=== PATIENT | female | born 1955 | race Caucasian/White ===

== ENCOUNTER 2018-06-24 07:35 | Observation (INO) ==
--- NOTE | 2018-06-24 08:00 | History & Physical Bridge Note ---
Date of Service June 24, 2018 History & Physical Bridge Note I have examined the patient, reviewed the History & Physical and in the interval since the performance of the History & Physical I have noted the following changes of clinical significance: no changes noted
--- NOTE | 2018-06-24 08:01 | Pre Anesthesia Assessment ---
Date of Service June 24, 2018 Pre Sedation Assessment Cardiovascular RRR, no murmur, no edema Respiratory normal respiratory effort, lungs clear to auscultation Pre-Sedation Airway Assessment Smoking Status: Never smoker Procedure Planning Contraindications for Sedation: none Current Medications Reviewed: Yes Notes The planned sedation has been discussed with the patient. Informed Consent was obtained. I have identified the patient, determined the appropriateness of sedation and have assessed the patient immediately prior to the procedure. All medicine(s) and interventions are by my order.
[2018-06-24] MEDS ORDERED: fentaNYL citrate 100 MCG/2 ML VIAL ONE (08:53)
[2018-06-24] MEDS ORDERED: MIDAZOLAM HCL 1 MG/ML 2ML VIAL ONE (08:53)
[2018-06-24] MEDS ORDERED: HEPARIN (PORCINE) 1000 UNIT/ML 10 ML (CATH LAB USE ONLY) ONE (08:54)
[2018-06-24] MEDS ORDERED: NiCARDipine HCL INJ 2.5 MG/ML 10 ML AMP ONE (08:54)
[2018-06-24] MEDS ORDERED: NITROGLYCERIN/D5W 100MCG/ML 20ML SYR ONE (08:54)
--- NOTE | 2018-06-24 09:13 | Cardiac Catheterization ---
Cardiac Cath Procedure Full Procedure Date June 24, 2018 Pre-Procedure Diagnosis Pre-Procedure Diagnosis: Angina and Cardiothoracic Symptom AUC Score AUC Score: 8 Post-Procedure Diagnosis Post-Procedure Diagnosis: Severe CAD and Normal Intracardiac Pressures Procedure(s) Performed Procedure(s) Performed: Coronary Angiography and Left Heart Cath Customer Advocate Dominic Allan DO Computer Typesetter Keyliner(s) Tessy SCOTT Estimated Blood Loss Estimated Blood Loss: 5cc Medication(s) Medication(s): Heparin, Lidocaine 1%, Nicardipine, Nitroglycerin and Versed Summary of Findings 70% tandem proximal and mid LAD Severe diffuse Diagonal branch vessel disease (small vessel, medical management) 99% proximal OM1 Hemodynamics Rest Ao:: 113/66/87 Final Ao: 125/57/85 LV: 120/0/14 Recommendations Recommendations: PCI without planned CABG Specimens Specimens: None Radiation Exposure (mGy) 732 Contrast (mls) 55 Fluids (cc crystalloids) Fluids (cc crystalloids): 77 Nss Anesthesia Moderate sedation. Start 0824. End 0922. Sedation monitor: Elkin SCOTT Procedural Complication(s) None Disposition cardiac catheterization technologist for PCI ACC Data: Shipyard Helper Cardiac Status Clinical evaluation leading to the procedure CAD Presenation: Unstable angina Anginal Classification: CCS II Heart Failure: No Stress Studies Past 6 Months: No Coronary Anatomy Dominant: Right Left Main (% Stenosis): Distal (20%, mild calcifdication) LAD (% Stenosis): Proximal (60-70% eccentric moderate calcification) and Mid (70% moderate calcifiaction, possible small thrombus. 50% long late mid stenosis, moderate calcification) D1 (% Stenosis): Ostial (80% small 1mm vessel), Proximal (95%) and Mid (40%) Circumflex (% Stenosis): Proximal (20%) and Mid (10% diffuse) OM1 (% Stenosis): Proximal (99%) and Distal (left to left collateral arising from LAD) OM2 (% Stenosis): Mid (10% diffuse) RCA (% Stenosis): Proximal (20%, mild calcification) and Mid (long 40%, moderate calcification) R PDA (% Stenosis): Normal R PL1 (% Stenosis): Normal R PL2 (% Stenosis): Normal (RPL3 without significant obstructive disease) Diagnostic Physicians Name: Dominic Allan DO Status: Elective Closure Device Percutaneous Entry Location: Radial Closure Device: Radial Band Recommendations: PCI without planned CABG Intraprocedure Events Significant Disection: No Perforation: No
--- NOTE | 2018-06-24 09:13 | Post Anesthesia Assessment ---
Date of Service June 24, 2018 Post Sedation Assessment Vital Signs Temp Pulse Resp BP Pulse Ox 06/24/18 08:02 36.9 C 62 16 148/79 H 100 Post Sedation Plan On clinical assessment, the patient appears to have tolerated the sedation without complications. Patient is recovering as anticipated. Patient will continue to be monitored by nursing and may be discharged when sedation discharge criteria are met per below protocol. Upon Completions of procedure and additional 15 minutes continue every 5 minute vital signs and the P.A.R. score; then discharge to a Phase I or Fast Track to Phase II per the following guidelines: * Discharge Patient to appropriate Phase II area if PAR is 8 or greater or return to pre- procedure baseline. The post - procedure orders will be as directed. * If PAR score is less than 8 or not return to pre-procedure baseline then patient will follow Phase I monitoring till PAR is reached for Phase II. The Phase I may be done in procedure room or may call to secure a Phase I area. * If naloxone or flumazenil are used for reversal, hold in Phase I for continued monitoring from when last reversal dose was given for a minimum of 60 minutes or longer pending the nurse and/or physician discretion of patient condition before discharge to Phase II. Please call the Sedation Physician to re-evaluate and complete post-note for discharge to Phase II area. Do NOT discharge from procedure sedation or Phase 1 until post- sedation evaluation note is complete by procedure /sedation MD Sedation Discharge Instructions to be given to the patient at discharge to home.
[2018-06-24] MEDS ORDERED: CLOPIDOGREL BISULFATE 300 MG TAB ONE (10:34)
--- NOTE | 2018-06-24 10:39 | Post Anesthesia Assessment ---
Date of Service June 24, 2018 Post Sedation Assessment Vital Signs Temp Pulse Resp BP Pulse Ox 06/24/18 08:02 36.9 C 62 16 148/79 H 100 Recovery Score Activity: Moves 4 extremities Respiration: Deep Breath/Cough Circulation: +/-20% PreAnes Value Consciousness: Fully Awake Oxygen Saturation: O2 needed for >90% Discharge Sedation Level of Care: Fast Track Phase II Post Sedation Plan On clinical assessment, the patient appears to have tolerated the sedation without complications. Patient is recovering as anticipated. Patient will continue to be monitored by nursing and may be discharged when sedation discharge criteria are met per below protocol. Upon Completions of procedure and additional 15 minutes continue every 5 minute vital signs and the P.A.R. score; then discharge to a Phase I or Fast Track to Phase II per the following guidelines: * Discharge Patient to appropriate Phase II area if PAR is 8 or greater or return to pre- procedure baseline. The post - procedure orders will be as directed. * If PAR score is less than 8 or not return to pre-procedure baseline then patient will follow Phase I monitoring till PAR is reached for Phase II. The Phase I may be done in procedure room or may call to secure a Phase I area. * If naloxone or flumazenil are used for reversal, hold in Phase I for continued monitoring from when last reversal dose was given for a minimum of 60 minutes or longer pending the nurse and/or physician discretion of patient condition before discharge to Phase II. Please call the Sedation Physician to re-evaluate and complete post-note for discharge to Phase II area. Do NOT discharge from procedure sedation or Phase 1 until post- sedation evaluation note is complete by procedure /sedation MD Sedation Discharge Instructions to be given to the patient at discharge to home.
[2018-06-24] MEDS ORDERED: ACETAMINOPHEN 325 MG TAB PO PRN (10:49)
[2018-06-24] MEDS ORDERED: ONDANSETRON INJ 2 MG/ML 2 ML VIAL IV PRN (10:49)
--- NOTE | 2018-06-24 10:49 | Cardiac Catheterization ---
Cardiac Cath Procedure Full Procedure Date June 24, 2018 Pre-Procedure Diagnosis Pre-Procedure Diagnosis: Angina and Cardiothoracic Symptom AUC Score AUC Score: 8 Post-Procedure Diagnosis Post-Procedure Diagnosis: Severe CAD and Successful PCI Procedure(s) Performed Procedure(s) Performed: Coronary Angiography, PTCA and Drug Eluting Stent Tech Ed/Woodshop Teacher Raj Orozco MD Player Services Representative(s) Nidia Still RN Estimated Blood Loss Estimated Blood Loss: 20 Medication(s) Medication(s): Fentanyl, Heparin, Lidocaine 1%, Nicardipine, Nitroglycerin and Versed Summary of Findings 70% tandem proximal and mid LAD Severe diffuse Diagonal branch vessel disease (small vessel, medical management) 99% proximal OM1 Indication: Accelerating angina Access: 6 Fr right radial artery Catheters: EBU 3.5 guide, guideliner Findings: For full details of patient's coronary angiography please cath report dictated by Dr. Allan. Briefly, patient found to have multiple vessel disease including a sequential 70% lesions involving proximal to mid LAD and ostium of first obtuse marginal. Decision to proceed with PCI. -- PCI -- Antithrombotic therapy: Heparin, Clopidogrel Procedure: Left main cannulated with EBU 3.5 guide Sales Operations Specialist 50 wire passed across lesion into distal vessel IVUS used to assess extent of disease, degree of calcification. IVUS revealed heavily calcified lesions from proximal to mid LAD, greater than 70% stenosis Proximal to mid LAD lesions predilated with 2.0 and 2.5 compliant balloons With the aid of a guide liner dilated lesion stented with 2.5 x 38 mm Xience Maribell drug-eluting stent Stent post-dilated with 2.5 noncompliant balloon IC vasodilators administered for spasm Post procedure ADEN 3 flow, stent well expanded with minimal residual stenosis and no apparent cardiac complications. Sales Operations Specialist 50 wire removed from LAD, whisper wire directed into circumflex and obtuse marginal Ostium of obtuse marginal dilated with 2.0 balloon Post procedure ADEN III flow, 20-30% residual stenosis no apparent cardiac applications. Arterial Closure: TR band Summary: 1. Successful PCI of proximal to mid LAD with single long drug-eluting stent (2.5 x 38 mm Xience Maribell). 2. Successful PCTA of small proximal OM1 with 2.0 balloon Recommendations: To PCU for continued monitoring Loaded with 600 mg in phlebotomy lab assistant Continue dual-antiplatelet therapy for at least 6 months Continue statin, and ASCVD risk factor modification Consult cardiac Rehab Hemodynamics Rest Ao:: 129/63/90 Final Ao: 152/69/101 LV: -- Recommendations Recommendations: PCI without planned CABG Specimens Specimens: None Radiation Exposure (mGy) 2907 Contrast (mls) 222 Fluids (cc crystalloids) Fluids (cc crystalloids): 77 Nss Drains Drains: None Anesthesia Moderate Procedural Complication(s) None Disposition PCU ACC Data: Market Research Senior Project Manager Cardiac Status Clinical evaluation leading to the procedure CAD Presenation: Unstable angina Anginal Classification: CCS III Heart Failure: No Cardiogenic Shock within 24 Hours: No Cardiac Arrest within 24 Hours: No Imaging Studies Past 6 Months: Yes Stress Studies Past 6 Months: Yes Stress Echocardiogram: Yes - Negative Diagnostic Physicians Name: Raj Orozco MD Status: Elective Closure Device Percutaneous Entry Location: Radial Closure Device: Radial Band Recommendations: PCI without planned CABG PCI Indication: Unstable Angina Lesion Segment Name: Proximal to mid LAD Culprit Artery: Yes Stenosis Prior to Rx (%): 70 Chronic Total Occlusion: No IVUS: Yes FFR: No Pre-Procedure ADEN Flow: 3 Previously Treated Lesion: No Lesion Complexity: High/C Lesion Length (mm): 35 Thrombus Present: No Bifurcation Lesion: Yes Guidewire Across Lesion: Stenosis Post-Procedure (%): 0 Post-Procedure ADEN Flow: 3 Devices(s) Deployed: Yes Yes Lesion #2 Segment Name: Proximal OM1 Culprit Artery: No Stenosis Prior to Rx (%): 99 Chronic Total Occlusion: No IVUS: No FFR: No Pre-Procedure ADEN Flow: 3 Previously Treated Lesion: No Lesion Complexity: Non-High/Non-C Lesion Length (mm): 12 Thrombus Present: No Bifurcation Lesion: Yes Guidewire Across Lesion: Yes Stenosis Post-Procedure (%): 0 Post-Procedure ADEN Flow: 3 Devices(s) Deployed: No Intraprocedure Events Significant Disection: No Perforation: No
[2018-06-24] MEDS ORDERED: SODIUM CHLORIDE 0.9% 1000ML 1,000 ML IV SCH (11:00)
[2018-06-24] MEDS ORDERED: CETIRIZINE HCL 10 MG TABLET PO PRN (11:08)
[2018-06-24] MEDS ORDERED: POLYETHYLENE (MIRALAX) 17 GM PACK PO PRN (11:10)
--- NOTE | 2018-06-24 11:11 | Hospitalist Consultation ---
Date of Consultation June 24, 2018 Assessment & Plan (1) CAD (coronary artery disease): Underwent cardiac cath with angioplasty and stent placement today - management per primary service. Pt is currently stable and feeling well - Received loading dose of Plavix in sleep lab technologist - continue dual anti-platelets x 6 months per cardio note - Already on beta-manny and statin therapy (2) Celiac disease: Pt reports this is stable and currently asymptomatic - Continue gluten-free diet while admitted (3) Dyslipidemia: - Continue outpatient statin therapy - pt reports that she does well on rosuvastatin (4) High blood pressure: - Management per primary service - on atenolol and HCTZ as outpatient (5) Acid reflux disease: - Continue once daily PPI therapy - will use pantoprazole while admitted Patient seen and evaluated with collaborating physician, Dr. Kelsey. Plan of care discussed and as outlined above. Thank you for this consultation. We will continued to follow patient with you - pt will be follwed by Dr. Grace starting tomorrow morning. [facility] can be reached 27/10 via pager at [phone]. Moriah Sloan PA-C. Supervising Physician Co-Signing Physician Notes Patient is a 63-year-old female with history of hypertension, dyslipidemia, celiac disease and other problems was seen in examined after having an elective cardiac catheterization and PCI today. Patient was noted to have a 70% stenosis proximal and mid LAD, severe diffuse diagonal branch vessel disease and 99% proximal OM1. Patient underwent successful PCI of proximal mid LAD with drug- eluting stent and successful PCTA of small proximal OM1 with balloon. Post catheterization patient is doing well with no complaints of chest pain, shortness of breath, dizziness, fever, nausea. On exam patient is moderately built and nourished, no distress, normocephalic atraumatic, lungs are clear to auscultation, S1-S2, no murmur, abdomen is soft nontender, no neurological focal deficits, no pedal edema. Patient is admitted under observation status for management of post PCI. Plan to continue dual antiplatelet therapy with aspirin and Plavix. Also continue BB, statin. Her celiac disease is well controlled. Continue gluten-free diet. I personally reviewed the record. Patient is interviewed and examined at bedside. Patient's care is coordinated with Padmini Sloan PA-C. Please refer to the documentation above for details of patient's presentation and for discussion of other issues. History of Present Illness Attending Physician: Dominic Allan DO This is a 63 y/o female with a PMH of HTN, dyslipidemia, migraine, Meneires disease and celiac disease who is being admitted for observation after cardiac catheterization with angioplasty and stent placement. Pt apparently developed an episode of chest pain in fall 2017 when she was visiting [facility] [place]. She was under subsequent stress echo that was negative for inducible ischemia by ec ho but did show equivocal EKG changes although no reproducible symptoms. Over the past few weeks, pt attempted to start an exercise regimen but developed crushing chest pressure when walking up an incline, relieved by rest, so again seen by cardiology and referred for cath. Underwent diagnostic cardiac cath by Dr. Allan followed by therapeutic intervention by Dr. Orozco with placement of long drug eluting stent in LAD and balloon of obtuse marginal artery. Currently, pt is seen resting comfortably on the floor post-cath. Her only complaint at present is frontal KRUSE that she attributes to not having her morning caffeine. She denies chest pain, shortness of breath, dizziness, nausea, vomiting. Allergies Allergy/AdvReac Type Severity Reaction Status Date / Time meperidine [From Demerol] Allergy Difficulty Verified 06/24/18 07:58 Breathing Penicillins Allergy Rash Verified 06/24/18 07:58 Home Medications Home Medications Medication Instructions Recorded Confirmed Type aspirin 81 mg PO DAILY 03/15/18 06/24/18 History atenolol 50 mg PO DAILY 03/15/18 06/24/18 History calcium citrate-vitamin D3 2 tab PO DAILY 03/15/18 06/24/18 History [Citracal + D Maximum] cetirizine [Zyrtec] 10 mg PO DAILY PRN 03/15/18 06/24/18 History hydrochlorothiazide 12.5 mg PO DAILY 03/15/18 06/24/18 History rosuvastatin 10 mg PO DAILY 03/15/18 06/24/18 History naproxen 500 mg PO BID PRN 06/24/18 06/24/18 History omeprazole magnesium [Prilosec OTC] 20 mg PO DAILY 06/24/18 06/24/18 History potassium chloride 10 meq PO DAILY 06/24/18 06/24/18 History pseudoephedrine HCl [Sudafed] See Rx Instructions .ROUTE .COMPLEX 06/24/18 06/24/18 History Patient History Medical History Acid reflux disease (Chronic) High blood pressure (Chronic) Microscopic hematuria (Chronic) Celiac disease (Chronic) Dyslipidemia (Chronic) Migraine (Chronic) Meniere disease (Chronic) Syringobulbia (Chronic) CAD (coronary artery disease) (Chronic) HX: benign breast biopsy Surgical History History of cataract surgery (Chronic) History of hysterectomy (Chronic) Still has ovaries Social History Preferred Language: Vietnamese Communication Ability: Effective Beliefs That Will Affect Care: None Current Living Situation: Spouse Other Information That Helps Us Care for You: No Feels Safe at Home: Yes Safety Concerns: Feels Safe At This Time Smoking Status: Never smoker Hx Alcohol Use: No Hx Substance Use: No Review of Systems All systems reviewed and negative except as noted in HPI and below Constitutional: no fever, no chills, no sweats, no malaise, no weakness and no weight loss Eyes: no diplopia and no worsening vision Ear, Nose, Mouth, Throat: no sore throat and no dysphagia Respiratory: no cough, no chest congestion, no dyspnea and no wheezing Cardiovascular: no chest pain, no palpitations, no lightheadedness and no edema Gastrointestinal: no nausea, no vomiting and no change in bowel habits Musculoskeletal: + back pain (chronic, unchanged) Integumentary: no rash Neurologic: + headache(s); no tingling, no radiating pain, no dizziness and no syncope Psychiatric: no depression and no anxiety Physical Exam Vital Signs (Past 24 Hours): Last Vital Signs Temp 36.9 C 06/24/18 08:02 Pulse 62 06/24/18 08:02 Resp 16 06/24/18 08:02 BP 148/79 H 06/24/18 08:02 Pulse Ox 100 06/24/18 08:02 Constitutional: WD/WN, vitals as above Eyes: + anicteric sclerae; no conjunctival abnormality ENMT: external ear and nose normal, oropharynx normal Neck: trachea midline Respiratory: no respiratory distress and no labored breathing Auscultation: lungs clear to auscultation bilaterally; no rales, no rhonchi and no wheezes Cardiovascular: Rate/Rhythm: regular rate and regular rhythm Heart Sounds: no gallop, no murmur and no cardiac rub Vessels: no JVD Extremities: normal capillary refill; no calf tenderness and no pedal edema Gastrointestinal (Abdomen): Inspection/Auscultation: normal bowel sounds; abdomen not distended Percussion/Palpation: abdomen soft; abdomen nontender Musculoskeletal: Extremities: no cyanosis Skin: no rashes, warm and dry Neurologic: moves all extremities Psychiatric: A+Ox3, euthymic affect Results & Data Laboratory Results Laboratory Last Values Activ Coag Time Kaolin 312 SECONDS (94-140) H 06/24/18 08:50 Medications Administered Acetaminophen (Tylenol) 650 mg PO Q4H PRN PRN Reason: Mild Pain (scale 1-3) Stop: 07/24/18 10:48 Last Admin: 06/24/18 12:07 Dose: 650 mg Documented by: [id number] Sodium Chloride (Nss 1000ml) 1,000 mls @ 75 mls/hr IV .[id number] OSMIN Stop: 06/24/18 17:39 Last Admin: 06/24/18 11:31 Dose: 75 mls/hr Documented by: [id number] Discontinued Medications Clopidogrel Bisulfate (Plavix) Confirm Administered Dose 600 mg .ROUTE .STK-MED ONE Stop: 06/24/18 10:35 Last Admin: 06/24/18 10:37 Dose: 600 mg Documented by: [id number] Fentanyl Citrate (Fentanyl Citrate) Confirm Administered Dose 100 mcg .ROUTE .STK-MED ONE Stop: 06/24/18 08:54 Last Increment: 06/24/18 10:33 Dose: 25 mcg Documented by: [id number] Heparin Sodium (Porcine) (Heparin Iv Bolus (Cut Off Machine Helper Use Only)) Confirm Administered Dose 10,000 units .ROUTE .STK-MED ONE Stop: 06/24/18 08:55 Last Admin: 06/24/18 10:36 Dose: 10,000 units Documented by: [id number] Heparin Sodium/Sodium Chloride (Heparin Sod/Nss 2 Units/Ml) Confirm Administered Dose 3,000 units IV .STK-MED ONE Stop: 06/24/18 08:55 Last Admin: 06/24/18 10:36 Dose: 3,000 units Documented by: [id number] Midazolam HCl (Versed) Confirm Administered Dose 4 mg .ROUTE .STK-MED ONE Stop: 06/24/18 08:54 Last Increment: 06/24/18 10:35 Dose: 3 mg Documented by: [id number] Nicardipine HCl (Cardene) Confirm Administered Dose 25 mg .ROUTE .STK-MED ONE Stop: 06/24/18 08:55 Last Admin: 06/24/18 10:36 Dose: 25 mg Documented by: [id number] Nitroglycerin/Dextrose (Nitroglycerin/D5w 100 Mcg/Ml 20ml Syringe) Confirm Administered Dose 2,000 mcg .ROUTE .STK-MED ONE Stop: 06/24/18 08:55 Last Admin: 06/24/18 10:36 Dose: 2,000 mcg Documented by: [id number] (1) Acid reflux disease Esophagitis presence: esophagitis presence not specified Qualified Code(s): K21.9 - Gastro-esophageal reflux disease without esophagitis (2) High blood pressure Hypertension type: essential hypertension Qualified Code(s): I10 - Essential (primary) hypertension
[2018-06-25 03:30] VITALS: PULSE 60; O2SAT 96
[2018-06-25 06:49] LABS: Basophils # (auto) 0.01 K/uL (0-0.2); Basophils % (auto) 0.1 %; Eosinophils # (auto) 0.33 K/uL (0-0.5); Eosinophils % (auto) 4.5 %; Hematocrit (blood only) 40.2 % (37-47); Hemoglobin 13.6 g/dL (12.0-16.0); Immature Granulocytes # (auto) 0.02 K/uL (0.00-0.02); Immature Granulocytes % (auto) 0.3 %; Lymphocytes # (auto) 1.75 K/uL (1.2-3.4); Lymphocytes % (auto) 23.6 %; Mean Corpuscular Hgb Conc 33.8 g/dL (32-36); Mean Corpuscular Volume 87.4 fL (80-100); Mean Platelet Volume 10.2 fL (7.4-10.4); Monocytes # (auto) 0.56 K/uL (0.11-0.59); Monocytes % (auto) 7.6 %; Neutrophils # (auto) 4.73 K/uL (1.4-6.5); Neutrophils % (auto) 63.9 %; Platelet Count 166 K/uL (130-400); RDW Standard Deviation 41.4 fL (36.4-46.3)
[2018-06-25 07:13] VITALS: BP 134/72; TEMP 98.1
[2018-06-25 07:29] LABS: Calcium 8.9 mg/dl (8.5-10.1); Creatinine Clr Calc Pharmacy 66.3 ml/min; Est GFR (African American) 99.2; Est GFR (Non-African American) 85.6; Magnesium 2.3 mg/dl (1.8-2.4); Potassium 3.7 mmol/L (3.5-5.1)
[2018-06-25] MEDS ORDERED: CLOPIDOGREL BISULFATE 75 MG TAB PO SCH (09:00)
[2018-06-25] MEDS ORDERED: ROSUVASTATIN CALCIUM 10 MG TAB PO SCH (09:00)
[2018-06-25] MEDS ORDERED: ATENOLOL 50 MG TABLET PO SCH (09:00)
[2018-06-25] MEDS ORDERED: hydroCHLOROthiazide 25 MG TAB PO SCH (09:00)
[2018-06-25] MEDS ORDERED: PANTOprazole 40 MG TAB PO SCH (09:00)
[2018-06-25] MEDS ORDERED: ASPIRIN 81 MG ECTAB PO SCH (09:00)
--- NOTE | 2018-06-25 09:04 | Cardiology Progress Note ---
Date of Service June 25, 2018 Assessment & Plan (1) CAD (coronary artery disease): Successful PCI of proximal to mid LAD with single long drug-eluting stent (2.5 x 38 mm Xience Maribell). and Successful PCTA of small proximal OM1 with 2.0 balloon tolerated well hematoma resolved, reviewed need for close monitoring with patient and to seek immediate medical attention should it reaccumulate or any sign of bleeding script for plavix sent to [facility] pharmacy per patient preference only other med change will be to increase crestor to 20mg daily already scheduled with Stephanie Amaro PA-C on 07/05, will keep bmp in one week to follow K pt instructed to gradually increase activity as tolerated. will d/c home now (2) Dyslipidemia: increase crestor to 20mg daily further titration as an outpatient Subjective Pt seen and examined, without complaint. Slight hematoma formation last PM, now resolved. Some slight soreness at site. Denies cp, sob, palpitations, lightheadedness or dizziness. tele reviewed: sinus rhythm without arrhythmia or significant ectopy. Review of Systems All systems reviewed & are unremarkable except as noted in HPI & below Physical Exam Vital Signs (Past 24 Hours): Last Vital Signs Temp 36.7 C 06/25/18 07:11 Pulse 60 06/25/18 07:11 Resp 16 06/25/18 07:11 BP 134/72 06/25/18 07:11 Pulse Ox 96 06/25/18 07:11 Physical Exam: General: Awake, alert and oriented x 3. No acute distress. HEENT: Normocephalic, atraumatic. Pupils equal, round and reactive to light and accommodation. Extraocular muscles are intact. Anicteric sclera. Moist mucous membranes. Neck: No JVD. No bruit. Cardiovascular: Regular. Positive S-4. Normal S-1 and S-2. No S-3. No murmurs or rubs. Pulmonary: Clear to auscultation B/L. No rales, rhonchi or wheezing Abdomen: Bowel sounds x 4, soft. No rebound, guarding or tenderness. No organomegaly. Extremities: No clubbing, cyanosis or edema. +2 pedal pulses bilaterally. Skin: Warm and dry.
--- NOTE | 2018-06-25 09:07 | Discharge Summary ---
Date of Service June 25, 2018 Admission Exam Per Admitting Provider General: Awake, alert and oriented x 3. No acute distress. HEENT: Normocephalic, atraumatic. Pupils equal, round and reactive to light and accommodation. Extraocular muscles are intact. Anicteric sclera. Moist mucous membranes. Neck: No JVD. No bruit. Cardiovascular: Regular. Positive S-4. Normal S-1 and S-2. No S-3. No murmurs or rubs. Pulmonary: Clear to auscultation B/L. No rales, rhonchi or wheezing Abdomen: Bowel sounds x 4, soft. No rebound, guarding or tenderness. No organomegaly. Extremities: No clubbing, cyanosis or edema. +2 pedal pulses bilaterally. Skin: Warm and dry. Principal Diagnosis Principal Diagnosis CAD Discharge Exam General: Awake, alert and oriented x 3. No acute distress. HEENT: Normocephalic, atraumatic. Pupils equal, round and reactive to light and accommodation. Extraocular muscles are intact. Anicteric sclera. Moist mu cous membranes. Neck: No JVD. No bruit. Cardiovascular: Regular. Positive S-4. Normal S-1 and S-2. No S-3. No murmurs or rubs. Pulmonary: Clear to auscultation B/L. No rales, rhonchi or wheezing Abdomen: Bowel sounds x 4, soft. No rebound, guarding or tenderness. No organomegaly. Extremities: No clubbing, cyanosis or edema. +2 pedal pulses bilaterally. Skin: Warm and dry. Discharge Data Allergies Allergy/AdvReac Type Severity Reaction Status Date / Time meperidine [From Demerol] Allergy Difficulty Verified 06/24/18 07:58 Breathing Penicillins Allergy Rash Verified 06/24/18 07:58 Procedures Performed Operation Date: 06/24/18 08:00 Actual Procedures p Cath, Left with Cors and Vent - Dominic Allan DO s Cineradiography w/Routine Exam - Dominic Allan DO s Drug Eluting Stent SGl Vessel - Alessio Orozco MD s IVUS Coronary Single Vessel - Alessio Orozco MD s POBA SGL Vessel - Alessio Orozco MD Ordered Studies 06/24/18 07:05 CL Cath Imgs for PACS use only Routine Hospital Course (1) CAD (coronary artery disease): Successful PCI of proximal to mid LAD with single long drug-eluting stent (2.5 x 38 mm Xience Maribell). and Successful PCTA of small proximal OM1 with 2.0 balloon tolerated well hematoma resolved, reviewed need for close monitoring with patient and to seek immediate medical attention should it reaccumulate or any sign of bleeding script for plavix sent to [facility]'s pharmacy per patient preference only other med change will be to increase crestor to 20mg daily already scheduled with Stephanie Amaro PA-C on 07/05, will keep bmp in one week to follow K pt instructed to gradually increase activity as tolerated. will d/c home now (2) Dyslipidemia: increase crestor to 20mg daily further titration as an outpatient Total Time Total Time Spent Total Time Spent (In Minutes): 40 Discharge Plan Discharge Items Patient Disposition: Home - Self-Care Reason For Visit: Chest Pain Discharge Diagnosis: coronary artery disease Discharge Goals: Improve disease control and Improve function Activity: Resume your previous activity Non-emergency contact: Primary Care Provider Call non-emergency contact if: you have any medication questions Follow-up/Referrals: Mary Garcia PA-C [Primary Care Provider] - Diet: Heart Healthy Add Provider Instructions: Home Care: * Take your medications exactly as directed. Don't skip doses. * Remember that recovery after a heart attack takes time. Plan to rest for at lease 4-8 weeks while you recover. Then return to normal activity when your doctor says it's okay. * Ask your doctor about joining a heart rehabilitation program. * Tell your doctor if you are feeling depressed. Feelings of sadness are common after a heart attack, but it is important that you speak to someone if you are feeling overwhelmed by these feelings. * If you are having chest pain, call 911 for an ambulance. Do NOT drive yourself to the hospital. * Ask your family members to learn CPR. * Learn to take your own blood pressure and pulse. Keep a record of your results. Ask your doctor when you should seek emergency medical attention. He or she will tell you which blood pressure reading is dangerous. Lifestyle Changes: * Maintain a healthy weight. Get help to lose any extra pounds. * Cut back on salt. * Limit canned, dried, packaged, and fast foods. * Don't add salt to your food. * Season foods with herbs instead of salt when you cook. * Break the smoking habit. Enroll in a stop-smoking program to improve your chances of success. * Limit fatty foods. * Ask your doctor about having your lipid levels checked regularly. * Build up your activity according to your doctor's recommendation. * Ask your doctor when it's okay to resume sexual activity. * Tell your doctor about any erectile dysfunction (ED) medication you are taking. Some ED medications are not safe if you take certain heart medications. * Try to manage stress. Follow Up: It is important for you to keep your follow up appointments with your medical provider. Prescriptions: New clopidogrel 75 mg Tablet 75 mg PO QAM Qty: 34 RF: 0 Continued aspirin 81 mg Tablet,Delayed Release (Dr/Ec) 81 mg PO DAILY RF: 0 cetirizine [Zyrtec] 10 mg Tablet 10 mg PO DAILY PRN (Reason: Allergy Symptoms) RF: 0 hydrochlorothiazide 12.5 mg capsule 12.5 mg PO DAILY RF: 0 atenolol 50 mg tablet 50 mg PO DAILY RF: 0 calcium citrate-vitamin D3 [Citracal + D Maximum] 315-250 mg-unit Tablet 2 tab PO DAILY RF: 0 potassium chloride 10 mEq Capsule, Extended Release 10 meq PO DAILY RF: 0 pseudoephedrine HCl [Sudafed] 30 mg Tablet See Rx Instructions .ROUTE .COMPLEX RF: 0 naproxen 500 mg Tablet 500 mg PO BID PRN (Reason: Pain) RF: 0 Prilosec OTC 20 mg Tablet,Delayed Release (Dr/Ec) 20 mg PO DAILY RF: 0 Changed rosuvastatin 10 mg tablet 20 mg PO DAILY Qty: 0 RF: 0 Stand-Alone Forms: [facility] Discharge Orders: Discharge Order (Routine); Ordered 06/25/18 Ordered By: Brannon Weaver Admission Data Admit Date/Time: 06/24/18 09:46 Attending Provider: Shawna Grace Admit Provider: Dominic Allan Primary Care Provider: Mary Garcia Other Providers: Mark Kelsey Service: Telemetry Other Pending Studies at Discharge: No
== END 2018-06-25 10:00 | disposition home or self-care (01) ==
LOC: CC 07:35 → 2E 07:35 → SUATTDRO 09:46

== ENCOUNTER 2019-10-25 12:56 | Observation (INO) ==
[2019-10-25] MEDS ORDERED: SODIUM CHLORIDE 0.9% 1000ML 1,000 ML IV ONE (13:21)
--- NOTE | 2019-10-25 13:26 | Emergency Department Note ---
Impression & Plan Chest pressure, SOB (shortness of breath), Acute hypokalemia ED Provider Note NAME: JUAN PABLO HALL AGE: 64 SEX: F : 1955 ARRIVES VIA: Walk-In INFORMANT: Patient ED PROVIDER(S): Anton George DO CHIEF COMPLAINT: Shortness of breath, chest pain and left finger pain as well as bruising HPI: Patient is a 64-year-old female with a past medical history of CAD, migraine, hematuria, hypertension, for shortness of breath with exertion which has been present for the past 2 weeks. She notes that over the past week she has been getting some intermittent chest pain as well which she describes as pressure and twinges. She notes that today she had some bruising/bump on her left distal dorsal forearm. She has some tingling in her left second digit. No weakness or numbness anywhere else. No other exacerbating or remitting factors. No swelling of the cast. She does take Plavix. She had no symptoms when she had her heart attack previously. ROS: See above HPI for pertinent positives & negatives. A total of 10 systems reviewed and were otherwise negative. PAST MEDICAL HISTORY:See Below PAST SURGICAL HISTORY:See Below FAMILY HISTORY:See Below SOCIAL HISTORY:See Below HOME MEDICATIONS:See Below ALLERGIES:See Below VITALS:See Below PHYSICAL EXAMINATION: GENERAL: Sitting up in bed, alert, well appearing, well nourished, no distress, non-toxic EYE EXAM: normal conjunctiva. OROPHARYNX: no exudate, no erythema, lips, buccal mucosa, and tongue normal and mucous membranes are moist NECK: supple, no nuchal rigidity, no adenopathy, non-tender LUNGS: Clear to auscultation. Normal chest wall mechanics HEART: no murmurs, S1 normal and S2 normal ABDOMEN: abdomen soft, non-tender, normo-active bowel sounds, no masses, no rebound or guarding. BACK: Back is symmetrical on inspection and there is no deformity, no midline tenderness, no CVA tenderness. SKIN: no rashes and no bruising UPPER EXTREMITIES: upper extremities are grossly normal. Bruising of her left distal forearm LOWER EXTREMITIES: No pitting edema. NEURO EXAM: Normal sensorium, cranial nerves II-XII intact, normal speech, no weakness of arms, no weakness of legs. MEDICAL DECISION MAKING: Patient is a 64-year-old female who presents the ER for exertional shortness of breath and intermittent chest pain over the past 2 weeks. IV was established blood work was obtained. She was referred in by PCP. Labs show no significant leukocytosis or anemia. INR was unremarkable. D-dimer was negative and a low risk patient. BMP with mild hypokalemia. LFTs bilirubin and troponin was negative. TSH was unremarkable. UA was clean with the exception of a small amount of blood which has been there previously. Chest x-ray without any focal infiltrate. EKG with subtle changes/T wave flattening which is new in comparison to old. Patient is asymptomatic. She was given aspirin. Updated bedside. Discussed with the hospitalist for observation. Triage Nursing notes reviewed. Prior medical records reviewed Vital Signs: reviewed and remarkable for hypertension Differential diagnosis: Differential diagnoses includes but is not limited to acute coronary syndrome, myocardial infarction, pericarditis, pulmonary embolus, aortic dissection, pneumonia, pneumothorax, musculoskeletal, shingles, esophageal. ER treatment provided: See below Diagnostics interpreted by me: ECG: Sinus rhythm rate of 62 Normal axis T wave inversion in the inferior leads with nonspecific ST wave changes in the inferior leads No PVCs Normal QTC Nonspecific T wave changes V2 through V5 which is new from 2019 EKG. Cardiac Monitoring: An order was placed for continuous cardiac monitoring. The monitor shows a rate of 64 with sinus rhythm. Laboratory studies: As stated above and show below. Imaging studies: Portable AP upright 1 view of the chest shows no focal infiltrate or pneumothorax Consultation(s): Discussed with hospitalist for admission. ED COURSE: Procedures: none Critical Care: None Past Med/Surg History Medical History (Updated 10/25/19 @ 18:20 by Anton George DO) CAD (coronary artery disease) (Chronic) Celiac disease (Chronic) Dyslipidemia (Chronic) GERD (gastroesophageal reflux disease) HTN (hypertension) HX: benign breast biopsy Meniere disease (Chronic) Microscopic hematuria (Chronic) Migraine (Chronic) Syringobulbia (Chronic) Surgical History History of cataract surgery (Chronic) History of hysterectomy (Chronic) Still has ovaries Hx of cardiac cath 06/2018 at [facility], ANAT to LAD, PTCA small proximal OM1 Family History Father Colorectal cancer Mother Rheumatoid arthritis Diabetes Social History Smoking Status: Never smoker Second Hand Exposure: No; Do You Dip or Chew Tobacco: No; Tobacco Cessation Education Requested by Patient: No Hx Alcohol Use: No Hx Substance Use: No Preferred Language: Latvian Communication Ability: Effective Post Framer Required: No Beliefs That Will Affect Care: None Current Living Situation: Spouse current occupation: retired Other Information That Helps Us Care for You: No Feels Safe at Home: No Is there a partner from a previous relationship who is making you feel unsafe now?: No Any Concerns about Your Family Situation: No Wou ld You Like to Speak to Someone About Your Situation: No Safety Concerns: Feels Safe At This Time Allergies Allergies Allergy/AdvReac Type Severity Reaction Status Date / Time meperidine [From Demerol] Allergy Difficulty Verified 10/25/19 13:58 Breathing Penicillins Allergy Rash Verified 10/25/19 13:58 Home Meds Home Medications Medication Instructions Recorded Confirmed aspirin 81 mg PO DAILY 03/15/18 10/25/19 atenolol 50 mg PO DAILY 03/15/18 10/25/19 calcium citrate-vitamin D3 2 tab PO DAILY 03/15/18 10/25/19 [Citracal + D Maximum] cetirizine [Zyrtec] 10 mg PO DAILY PRN 03/15/18 10/25/19 hydrochlorothiazide 12.5 mg PO DAILY 03/15/18 10/25/19 potassium chloride 10 meq PO DAILY 06/24/18 10/25/19 doxycycline hyclate 100 mg PO BID 10/25/19 10/25/19 nitroglycerin [Nitrostat] 0.4 mg SUBLINGUAL DIRECTED PRN 10/25/19 10/25/19 pantoprazole 40 mg PO DAILY 10/25/19 10/25/19 Previous Rx's Medication Instructions Recorded clopidogrel 75 mg PO QAM #34 tab 06/25/18 rosuvastatin 20 mg PO DAILY #0 tab 06/25/18 Results & Data (ED) Vital Signs Vital Signs - 24 hr 10/25/19 13:05 10/25/19 13:18 10/25/19 13:31 Temperature 37 C Temperature Source Oral Pulse Rate 64 68 Pulse Rate [Apical] 68 Pulse Rate from SpO2 Sensor Pulse Rhythm Regular Pulse Rhythm [Apical] Regular Pulse Strength [Apical] Normal Respiratory Rate 20 16 16 Respiratory Effort / Characteristics Non-Labored Respiratory Depth Normal Respiratory Pattern Regular Blood Pressure 147/83 H Blood Pressure [Right Arm] 168/89 H Blood Pressure Mean 104 Blood Pressure Mean [Right Arm] 115 Blood Pressure Position [Right Arm] Lying Pulse Oximetry 98 98 98 Oxygen Delivery Method Room Air Room Air Room Air Sepsis Recent Fever Within 48 Hours No Sepsis New/Unexplained Change in Mental Status No Sepsis Action Taken by Nursing No Action Required 10/25/19 14:00 10/25/19 14:36 10/25/19 14:37 Temperature Temperature Source Pulse Rate 57 L 57 L Pulse Rate [Apical] Pulse Rate from SpO2 Sensor 57 L Pulse Rhythm Pulse Rhythm [Apical] Pulse Strength [Apical] Respiratory Rate 16 19 Respiratory Effort / Characteristics Respiratory Depth Respiratory Pattern Blood Pressure 144/75 H 128/75 Blood Pressure [Right Arm] Blood Pressure Mean 86 96 Blood Pressure Mean [Right Arm] Blood Pressure Position [Right Arm] Pulse Oximetry 98 Oxygen Delivery Method Sepsis Recent Fever Within 48 Hours Sepsis New/Unexplained Change in Mental Status Sepsis Action Taken by Nursing 10/25/19 14:38 10/25/19 15:00 10/25/19 15:01 Temperature Temperature Source Pulse Rate 54 L 55 L 58 L Pulse Rate [Apical] Pulse Rate from SpO2 Sensor 55 L 56 L 57 L Pulse Rhythm Pulse Rhythm [Apical] Pulse Strength [Apical] Respiratory Rate 14 12 11 L Respiratory Effort / Characteristics Respiratory Depth Respiratory Pattern Blood Pressure 152/74 H Blood Pressure [Right Arm] Blood Pressure Mean 97 Blood Pressure Mean [Right Arm] Blood Pressure Position [Right Arm] Pulse Oximetry 98 98 98 Oxygen Delivery Method Sepsis Recent Fever Within 48 Hours Sepsis New/Unexplained Change in Mental Status Sepsis Action Taken by Nursing Laboratory Data Result diagrams: 10/25/19 13:30 10/25/19 13:30 Lab Results 10/25/19 10/25/19 10/25/19 Range/Units 13:30 13:30 13:30 WBC 6.43 (4.8-10.8) K/uL RBC 4.77 (4.2-5.4) M/uL Hgb 13.9 (12.0-16.0) g/dL Hct 41.5 (37-47) % MCV 87.0 (80-100) fL MCH 29.1 (25-34) pg MCHC 33.5 (32-36) g/dL RDW Std Deviation 41.9 (36.4-46.3) fL RDW Coeff of Lambert 13.1 (11.5-14.5) % Plt Count 164 (130-400) K/uL MPV 10.1 (7.4-10.4) fL Immature Gran % (Auto) 0.2 % Neut % (Auto) 51.7 % Lymph % (Auto) 37.8 % [place] % (Auto) 5.9 % Eos % (Auto) 3.9 % Baso % (Auto) 0.5 % Neut # (Auto) 3.33 (1.4-6.5) K/uL Lymph # (Auto) 2.43 (1.2-3.4) K/uL [place] # (Auto) 0.38 (0.11-0.59) K/uL Eos # (Auto) 0.25 (0-0.5) K/uL Baso # (Auto) 0.03 (0-0.2) K/uL Immature Gran # (Auto) 0.01 (0.00-0.02) K/uL PT 10.5 (9.0-12.0) Seconds INR 1.0 (0.9-1.1) APTT 26.3 (21.0-31.0) Seconds PTT Ratio 0.9 D-Dimer 390 (0-500) ug/L FEU Sodium 140 (136-145) mmol/L Potassium 3.3 L (3.5-5.1) mmol/L Chloride 104 (98-107) mmol/L Carbon Dioxide 30 (21-32) mmol/L Anion Gap 6.0 (3-11) BUN 13 (7-18) mg/dl Creatinine 0.97 (0.6-1.2) mg/dl Est Cr Clr Drug Dosing 49.9 ml/min Est GFR ( Amer) 71.0 Est GFR (Non-Af Amer) 61.3 BUN/Creatinine Ratio 13.6 (10-20) Glucose 112 H (70-99) mg/dl Calcium 9.2 (8.5-10.1) mg/dl Magnesium (1.8-2.4) mg/dl Total Bilirubin 0.5 (0.2-1) mg/dl AST 26 (15-37) U/L ALT 30 (12-78) U/L Alkaline Phosphatase 84 (45-117) U/L Total Creatine Kinase (26-192) U/L Troponin I < 0.015 (0-0.045) ng/ml Total Protein 7.6 (6.4-8.2) gm/dl Albumin 3.7 (3.4-5.0) gm/dl Globulin 3.9 (2.5-4.0) gm/dl Albumin/Globulin Ratio 0.9 (0.9-2) Lipase 163 (73-393) U/L TSH (0.300-4.500) uIu/ml Urine Color Urine Appearance (Clear) Urine pH (4.5-7.5) Ur Specific [place] (1.000-1.030) Urine Protein (Negative) Urine Glucose (UA) (Negative) Urine Ketones (Negative) Urine Blood (Negative) Urine Nitrite (Negative) Urine Bilirubin (Negative) Urine Urobilinogen (Negative) Ur Leukocyte Esterase (Negative) Urine WBC (Auto) (0-5) /hpf Urine RBC (Auto) (0-4) /hpf U Hyaline Cast (Auto) (0-5) /lpf U Epithel Cells (Auto) (0-5) /lpf Urine Bacteria (Auto) (Negative) 10/25/19 10/25/19 Range/Units 13:30 13:30 WBC (4.8-10.8) K/uL RBC (4.2-5.4) M/uL Hgb (12.0-16.0) g/dL Hct (37-47) % MCV (80-100) fL MCH (25-34) pg MCHC (32-36) g/dL RDW Std Deviation (36.4-46.3) fL RDW Coeff of Lambert (11.5-14.5) % Plt Count (130-400) K/uL MPV (7.4-10.4) fL Immature Gran % (Auto) % Neut % (Auto) % Lymph % (Auto) % [place] % (Auto) % Eos % (Auto) % Baso % (Auto) % Neut # (Auto) (1.4-6.5) K/uL Lymph # (Auto) (1.2-3.4) K/uL [place] # (Auto) (0.11-0.59) K/uL Eos # (Auto) (0-0.5) K/uL Baso # (Auto) (0-0.2) K/uL Immature Gran # (Auto) (0.00-0.02) K/uL PT (9.0-12.0) Seconds INR (0.9-1.1) APTT (21.0-31.0) Seconds PTT Ratio D-Dimer (0-500) ug/L FEU Sodium (136-145) mmol/L Potassium (3.5-5.1) mmol/L Chloride (98-107) mmol/L Carbon Dioxide (21-32) mmol/L Anion Gap (3-11) BUN (7-18) mg/dl Creatinine (0.6-1.2) mg/dl Est Cr Clr Drug Dosing ml/min Est GFR ( Amer) Est GFR (Non-Af Amer) BUN/Creatinine Ratio (10-20) Glucose (70-99) mg/dl Calcium (8.5-10.1) mg/dl Magnesium 2.2 (1.8-2.4) mg/dl Total Bilirubin (0.2-1) mg/dl AST (15-37) U/L ALT (12-78) U/L Alkaline Phosphatase (45-117) U/L Total Creatine Kinase 167 (26-192) U/L Troponin I (0-0.045) ng/ml Total Protein (6.4-8.2) gm/dl Albumin (3.4-5.0) gm/dl Globulin (2.5-4.0) gm/dl Albumin/Globulin Ratio (0.9-2) Lipase (73-393) U/L TSH 1.590 (0.300-4.500) uIu/ml Urine Color Yellow Urine Appearance Clear (Clear) Urine pH 5.5 (4.5-7.5) Ur Specific [place] 1.011 (1.000-1.030) Urine Protein Negative (Negative) Urine Glucose (UA) Negative (Negative) Urine Ketones Negative (Negative) Urine Blood 1+ H (Negative) Urine Nitrite Negative (Negative) Urine Bilirubin Negative (Negative) Urine Urobilinogen Negative (Negative) Ur Leukocyte Esterase Negative (Negative) Urine WBC (Auto) 0 (0-5) /hpf Urine RBC (Auto) 0-4 (0-4) /hpf U Hyaline Cast (Auto) 0 (0-5) /lpf U Epithel Cells (Auto) 0-5 (0-5) /lpf Urine Bacteria (Auto) Negative (Negative) Administered Medications Discontinued Medications Aspirin (Aspirin) 324 mg PO NOW STA Stop: 10/25/19 15:58 Last Admin: 10/25/19 16:30 Dose: 324 mg Documented by: [id number] Sodium Chloride (Nss 1000ml) 1,000 mls @ 999 mls/hr IV .[id number] ONE Stop: 10/25/19 14:21 Last Infusion: 10/25/19 14:33 Dose: 0 mls/hr Documented by: [id number] Admin: 10/25/19 13:32 Dose: 999 mls/hr Documented by: [id number] Discharge Plan Visit Data *Final* Discharge Date/Time: 10/25/19 16:20 Chief Complaint: Shortness of Breath/Dyspnea Stated Complaint: SOB, SWEATING, FATIGUE ED Provider: Anton George Discharge Problem: Chest pressure, SOB (shortness of breath), Acute hypokalemia Patient Disposition: Admitted As Inpatient Discharge Instructions Interventions: ED Discharge Assessment Last Done: 10/25/19 16:20
[2019-10-25 13:38] LABS: Basophils # (auto) 0.03 K/uL (0-0.2); Basophils % (auto) 0.5 %; Eosinophils # (auto) 0.25 K/uL (0-0.5); Eosinophils % (auto) 3.9 %; Hematocrit (blood only) 41.5 % (37-47); Hemoglobin 13.9 g/dL (12.0-16.0); Immature Granulocytes # (auto) 0.01 K/uL (0.00-0.02); Immature Granulocytes % (auto) 0.2 %; Lymphocytes # (auto) 2.43 K/uL (1.2-3.4); Lymphocytes % (auto) 37.8 %; Mean Corpuscular Hemoglobin 29.1 pg (25-34); Mean Corpuscular Hgb Conc 33.5 g/dL (32-36); Mean Platelet Volume 10.1 fL (7.4-10.4); Monocytes # (auto) 0.38 K/uL (0.11-0.59); Monocytes % (auto) 5.9 %; Neutrophils # (auto) 3.33 K/uL (1.4-6.5); Neutrophils % (auto) 51.7 %; Platelet Count 164 K/uL (130-400); RDW Coefficient of Variation 13.1 % (11.5-14.5); RDW Standard Deviation 41.9 fL (36.4-46.3); Red Blood Count 4.77 M/uL (4.2-5.4); White Blood Count 6.43 K/uL (4.8-10.8)
--- NOTE | 2019-10-25 13:44 | XRay Report ---
SINGLE VIEW CHEST CLINICAL HISTORY: Atypical chest pain. FINDINGS: An AP, portable, upright chest radiograph is obtained. No prior studies are available for c omparison at the time of dictation. The examination is degraded by portable technique and patient rot ation. The cardiomediastinal silhouette is unremarkable. The lungs and pleural spaces are clear. No pneumothorax is seen. The bony thorax is grossly intact. IMPRESSION: No active disease in the chest. ACT 112: Negative or not required by law. Electronically signed by: Farhan Luong M.D. 10/25/2019 1:43 PM
[2019-10-25 13:49] LABS: Appearance Urine Clear (Clear); Bacteria Urine Automated Negative (Negative); Bilirubin Urine Negative (Negative); Blood Urine 1+ (Negative); Cast Urine Automated 0 /lpf (0-5); Color Urine Yellow; Epithelial Cell Urine Auto 0-5 /lpf (0-5); Glucose Urine UA Negative (Negative); Ketones Urine Negative (Negative); Leukocyte Esterase Urine Negative (Negative); Nitrite Urine Negative (Negative); Protein Urine Negative (Negative); RBC Urine Automated 0-4 /hpf (0-4); Specific Gravity Urine 1.011 (1.000-1.030); Urobilinogen Urine Negative (Negative); WBC Urine Automated 0 /hpf (0-5); pH Urine 5.5 (4.5-7.5)
[2019-10-25 13:55] LABS: D Dimer 390 ug/L FEU (0-500); Partial Thromboplastin Ratio 0.9; Partial Thromboplastin Time 26.3 Seconds (21.0-31.0); Prothrombin Time 10.5 Seconds (9.0-12.0)
[2019-10-25 13:56] LABS: Alanine Aminotransferase 30 U/L (12-78); Albumin Level 3.7 gm/dl (3.4-5.0); Aspartate Aminotransferase 26 U/L (15-37); BUN Creatinine Ratio 13.6 (10-20); Blood Urea Nitrogen 13 mg/dl (7-18); Calcium 9.2 mg/dl (8.5-10.1); Carbon Dioxide 30 mmol/L (21-32); Chloride 104 mmol/L (98-107); Creatinine Clr Calc Pharmacy 49.9 ml/min; Est GFR (Non-African American) 61.3; Glucose 112 mg/dl (70-99); Lipase 163 U/L (73-393); Potassium 3.3 mmol/L (3.5-5.1); Sodium 140 mmol/L (136-145)
[2019-10-25 14:01] LABS: Albumin Globulin Ratio 0.9 (0.9-2); Alkaline Phosphatase 84 U/L (45-117); Bilirubin,Total 0.5 mg/dl (0.2-1); Globulin 3.9 gm/dl (2.5-4.0); Total Protein 7.6 gm/dl (6.4-8.2); Troponin I < 0.015 ng/ml (0-0.045)
[2019-10-25 15:35] LABS: Magnesium 2.2 mg/dl (1.8-2.4); Thyroid Stimulating Hormone 1.59 uIu/ml (0.300-4.500)
[2019-10-25] MEDS ORDERED: ASPIRIN CHEW 324 MG PO STA (15:57)
--- NOTE | 2019-10-25 16:09 | History & Physical Report ---
Date of Service October 25, 2019 Assessment & Plan (1) Chest pressure: (2) SOB (shortness of breath): Pt is 64 y/o F with PMH CAD s/p ANAT to LAD & PTCA small proximal OM1 in 06/2018, HTN, dyslipidemia, celiac disease, GERD presented to ER with c/o intermittent SOB and chest pressure. Pt states past couple of weeks having intermittent episodes of SOB that can occur with exertion such as yard work/painting and sometimes at rest. Last night had episode of sweating and SOB described as needing to take big breath while she was doing housework. Walks often without reported symptoms. H/O atypical CP and had exercise stress echo in 01/2019 with no inducible ischemia at 78% max age predicted heart rate. EF: 60-64%, grade II diastolic dysfunction, mild mitral regurgitation, mild aortic regurgitation, mild tricuspid regurgitation In ER afebrile, P:54-68, BP: 128/75, 98% on RA. No leukocytosis, initial troponin negative, D-dimer WNL, EKG sinus rhythm, t wave flattening anterior, lateral leads R/O coronary disease. Risk factors: CAD, HTN, hyperlipidemia -No current CP or SOB -Monitor Vitals -Repeat EKG in am -Will trend troponin -lipid panel in am, continue statin -continue aspirin, atenolol -Nitro prn CP and repeat EKG for CP -NPO midnight for stress test tomorrow -Cardiology consult (3) Hypokalemia: K: 3.3 -replace and monitor -continue daily potassium supplement, may need to adjust dosage (4) Leg cramping: Last night c/o cramping type pain to bilateral calfs and today right calf still feels a little achy. Denies any edema, erythema of extremities. K: 3.3. magnesium: 2.2 May be secondary to electrolyte imbalance -CPK WNL at 167 -Obtain venous dopplers BLE to r/o DVT, however less likely (5) HTN (hypertension): Stable -Continue atenolol, HCTZ (6) Dyslipidemia: -Continue rosuvastatin (7) Celiac disease: -Gluten diet (8) GERD (gastroesophageal reflux disease): -Continue PPI DVT Prophylaxis -SCDs Full Code Follows with Mary Garcia PA-C for routine care Pt was seen and care coordinated with Dr Vangala. See addendum History of Present Illness Chief Complaint: SOB, chest pressure Primary Care Provider: Mary Garcia PA-C Pt is 64 y/o F with PMH CAD s/p ANAT to LAD & PTCA small proximal OM1 in 06/2018, HTN, dyslipidemia, celiac disease, GERD presented to ER with c/o intermittent SOB and chest pressure. Pt states past couple of weeks having intermittent episodes of SOB that can occur with exertion such as yard work/painting and sometimes at rest. Last night had episode of sweating and SOB described as needing to take big breath while she was doing housework. Walks often without reported symptoms. Last night c/o cramping type pain to bilateral calfs and today right calf still feels a little achy. Denies any edema, erythema of extremities. Pt states last night noticed a lump to left forearm and had some tingling sensation to left index finger. This morning woke up with improvement of symptoms and no further lump, area looks a little bruised. Denies any known injury or trauma. Does reports bruises easily. 09/27/2019 was seen at PCP office for fever, myalgias and reported tick bite that had occurred a little over one week prior to her left chest/abdominal wall. Pt states tick was not engorged. She was started on doxycycline for 30 day course and states has couple days remaining. Denies any rashes or bulls-eye type rash. No further fever/chills for past 3 weeks. Denies N/V/D/C, KRUSE, dizziness, syncope, vision changes, neck pain, orthopnea, palpitations, cough, sore throat, choking, otalgia, rhinorrhea, abdominal pain, weakness, rashes, urinary symptoms. Denies ill contacts, recent travel. Allergies Allergy/AdvReac Type Severity Reaction Status Date / Time meperidine [From Demerol] Allergy Difficulty Verified 10/25/19 13:58 Breathing Penicillins Allergy Rash Verified 10/25/19 13:58 Home Medications Home Medications Medication Instructions Recorded Confirmed Type aspirin 81 mg PO DAILY 03/15/18 10/25/19 History atenolol 50 mg PO DAILY 03/15/18 10/25/19 History calcium citrate-vitamin D3 2 tab PO DAILY 03/15/18 10/25/19 History [Citracal + D Maximum] cetirizine [Zyrtec] 10 mg PO DAILY PRN 03/15/18 10/25/19 History hydrochlorothiazide 12.5 mg PO DAILY 03/15/18 10/25/19 History potassium chloride 10 meq PO DAILY 06/24/18 10/25/19 History clopidogrel 75 mg PO QAM #34 tab 06/25/18 10/25/19 Rx rosuvastatin 20 mg PO DAILY #0 tab 06/25/18 10/25/19 Rx doxycycline hyclate 100 mg PO BID 10/25/19 10/25/19 History nitroglycerin [Nitrostat] 0.4 mg SUBLINGUAL DIRECTED PRN 10/25/19 10/25/19 History pantoprazole 40 mg PO DAILY 10/25/19 10/25/19 History Past Med/Surg History Medical History (Updated 10/25/19 @ 18:20 by Anton George DO) CAD (coronary artery disease) (Chronic) Celiac disease (Chronic) Dyslipidemia (Chronic) GERD (gastroesophageal reflux disease) HTN (hypertension) HX: benign breast biopsy Meniere disease (Chronic) Microscopic hematuria (Chronic) Migraine (Chronic) Syringobulbia (Chronic) Surgical History History of cataract surgery (Chronic) History of hysterectomy (Chronic) Still has ovaries Hx of cardiac cath 06/2018 at [facility], ANAT to LAD, PTCA small proximal OM1 Family History Father Colorectal cancer Mother Rheumatoid arthritis Diabetes Social History Smoking Status: Never smoker Second Hand Exposure: No; Do You Dip or Chew Tobacco: No; Tobacco Cessation Education Requested by Patient: No Hx Alcohol Use: No Hx Substance Use: No Preferred Language: Sinhala Communication Ability: Effective Pt Escort Required: No Beliefs That Will Affect Care: None Current Living Situation: Spouse current occupation: retired Other Information That Helps Us Care for You: No Feels Safe at Home: No Is there a partner from a previous relationship who is making you feel unsafe now?: No Any Concerns about Your Family Situation: No Would You Like to Speak to Someone About Your Situation: No Safety Concerns: Feels Safe At This Time Review of Systems Review of Systems: All systems reviewed & are unremarkable except as noted in HPI & below Physical Exam Physical Exam: General: no distress, WDWN Head: normocephalic, atraumatic Eyes: conjunctiva non-injected, anicteric ENT: normal inspection external ears, nose, mucous membranes moist Neck: supple, trachea midline Lungs: clear, no respiratory distress, no wheezing/rhonchi/rales CV: RRR, no murmur, no pretibial edema Abd: normal BS, soft, non-tender Ext: no cyanosis or erythema, slight calf tenderness to palpation right calf; bilateral forearms with ecchymosis Neuro: A&O x 3, no focal deficits noted, normal affect Skin: warm, dry Results & Data Results & Data ([facility]) Vital Signs (Past 12 Hours) Vital Signs Temp Pulse Pulse Resp BP BP Pulse Ox 10/25/19 14:37 57 L 19 128/75 98 10/25/19 14:36 57 L 16 10/25/19 14:00 144/75 H 10/25/19 13:31 68 16 98 10/25/19 13:18 68 16 168/89 H 98 10/25/19 13:05 37 C 64 20 147/83 H 98 Laboratory Results Short CBC 10/25/19 Range/Units 13:30 WBC 6.43 (4.8-10.8) K/uL Hgb 13.9 (12.0-16.0) g/dL Hct 41.5 (37-47) % Plt Count 164 (130-400) K/uL BMP 10/25/19 13:30 Sodium 140 Potassium 3.3 L Chloride 104 Carbon Dioxide 30 BUN 13 Creatinine 0.97 Glucose 112 H Calcium 9.2 Cardiac Enzymes 10/25/19 10/25/19 Range/Units 13:30 13:30 Total Creatine Kinase 167 (26-192) U/L Troponin I < 0.015 (0-0.045) ng/ml Liver Function 10/25/19 Range/Units 13:30 Total Bilirubin 0.5 (0.2-1) mg/dl AST 26 (15-37) U/L ALT 30 (12-78) U/L Alkaline Phosphatase 84 (45-117) U/L Albumin 3.7 (3.4-5.0) gm/dl Urine 10/25/19 Range/Units 13:30 Urine Color Yellow Urine Appearance Clear (Clear) Urine pH 5.5 (4.5-7.5) Ur Specific [place] 1.011 (1.000-1.030) Urine Protein Negative (Negative) Urine Glucose (UA) Negative (Negative) Diagnostic Findings IMPRESSION: No active disease in the chest. ECG Rate (beats per minute): 62 Rhythm: sinus rhythm Additional Comments: t wave flattening anterior, lateral leads Code Status & VTE Plan VTE Prophylaxis Plan VTE Prophylaxis will be ordered: Yes Supervising Physician Co-Signing Physician Notes Patient is a 64-year-old female with history of coronary artery disease, hypertension, hyperlipidemia and other medical problems presents with history of chest pressure and shortness of breath. Patient noticed having intermittent episodes of shortness of breath even with minimal exertion. Also states having bilateral calf pain. She recently finished a course of doxycycline for tick bite. Please review HPI for complete details of presentation. Initial troponin is negative. EKG showed normal sinus rhythm, nonspecific T wave changes in anterior leads. On exam patient is well-built and nourished, no apparent distress, normocephalic atraumatic, lungs are clear to auscultation, S1-S2, b radycardic, no pedal edema, abdomen soft, nontender, normal bowel sounds, alert awake and oriented, no focal deficits, left upper extremity minimal swelling/mild ecchymosis noted on dorsal side. Patient is admitted for management of chest pain rule out ACS. Plan for stress test tomorrow. We will continue to trend cardiac enzymes, check resting echo. Continue aspirin, Tylenol for now. Check lipid panel and repeat EKG in the morning. Will replace potassium supplement for hypokalemia. I personally reviewed the record. Patient is interviewed and examined at bedside. Patient's care is coordinated with Harika Chester PA-C. Please refer to the documentation above for details of patient's presentation and for discussion of other issues.
--- NOTE | 2019-10-25 17:19 | Ultrasound Report ---
BILATERAL LOWER EXTREMITY VENOUS DOPPLER HISTORY: Bilateral leg pain COMPARISON STUDY: None. FINDINGS: There is normal compressibility, flow, and augmentation within the bilateral lower extremit y deep venous systems. IMPRESSION: No DVT within the right or left lower extremity. ACT 112: Negative or not required by law. Electronically signed by: Riley Pacheco M.D. 10/25/2019 5:17 PM
[2019-10-25] MEDS ORDERED: POTASSIUM CHLORIDE 20 MEQ TABCR PO STA (17:38)
[2019-10-25] MEDS ORDERED: NITROGLYCERIN SL 0.4 MG/TAB TAB SL PRN (17:38)
[2019-10-25] MEDS: DOXYCYCLINE HYCLATE 100 MG CAP PO SCH (20:18)
[2019-10-26 06:05] LABS: Hematocrit (blood only) 39.4 % (37-47); Hemoglobin 13.2 g/dL (12.0-16.0); Mean Corpuscular Hemoglobin 29.3 pg (25-34); Mean Corpuscular Hgb Conc 33.5 g/dL (32-36); Mean Corpuscular Volume 87.6 fL (80-100); Mean Platelet Volume 10.3 fL (7.4-10.4); Platelet Count 141 K/uL (130-400); RDW Coefficient of Variation 13.3 % (11.5-14.5); RDW Standard Deviation 42.3 fL (36.4-46.3); White Blood Count 5.93 K/uL (4.8-10.8)
[2019-10-26 06:44] LABS: BUN Creatinine Ratio 19.1 (10-20); Calcium 8.7 mg/dl (8.5-10.1); Creatinine Clr Calc Pharmacy 53.2 ml/min; Est GFR (African American) 76.7; Est GFR (Non-African American) 66.2; Potassium 3.8 mmol/L (3.5-5.1)
[2019-10-26] MEDS: ACETAMINOPHEN 325 MG TAB PO PRN ×3 (08:22→20:38)
[2019-10-26] MEDS: CLOPIDOGREL BISULFATE 75 MG TAB PO SCH (08:23)
[2019-10-26] MEDS: ASPIRIN 81 MG ECTAB PO SCH (08:23)
[2019-10-26] MEDS: PANTOprazole 40 MG TAB PO SCH (08:23)
[2019-10-26] MEDS: hydroCHLOROthiazide 25 MG TAB PO SCH (08:23)
[2019-10-26] MEDS: ROSUVASTATIN CALCIUM 20 MG TAB PO SCH (08:23)
[2019-10-26] MEDS: DOXYCYCLINE HYCLATE 100 MG CAP PO SCH ×2 (08:23→20:36)
[2019-10-26] MEDS: POTASSIUM CHLORIDE 10 MEQ TABCR PO SCH (08:23)
[2019-10-26] MEDS: ATENOLOL 50 MG TABLET PO SCH (08:24)
--- NOTE | 2019-10-26 08:28 | Hospitalist Progress Note ---
Date of Service October 26, 2019 Assessment & Plan (1) Chest pressure: Troponins are neg x 2 (2) SOB (shortness of breath): Pt is 64 y/o F with PMH CAD s/p ANAT to LAD & PTCA small proximal OM1 in 06/2018, HTN, dyslipidemia, celiac disease, GERD presented to ER with c/o intermittent SOB and chest pressure. Pt states past couple of weeks having intermittent episodes of SOB that can occur with exertion such as yard work/painting and sometimes at rest. Last night had episode of sweating and SOB described as needing to take big breath while she was doing housework. Walks often without reported symptoms. H/O atypical CP and had exercise stress echo in 01/2019 with no inducible ischemia at 78% max age predicted heart rate. EF: 60-64%, grade II diastolic dysfunction, mild mitral regurgitation, mild aortic regurgitation, mild tricuspid regurgitation In ER afebrile, P:54-68, BP: 128/75, 98% on RA. No leukocytosis, initial troponin negative, D-dimer WNL, EKG sinus rhythm, t wave flattening anterior, lateral leads R/O coronary disease. Risk factors: CAD, HTN, hyperlipidemia -No current CP or SOB -EKG today -Troponins neg x 2 -Continue statin -Continue aspirin, atenolol -Nitro prn CP -NPO for stress test today -Cardiology on case -DC later today if cards w/u complete (3) Hypokalemia: K: 3.3 -replace and monitor -continue daily potassium supplement (4) Leg crampin/20 c/o cramping type pain to bilateral calfs and today right calf still feels a little achy. Denies any edema, erythema of extremities. May be secondary to electrolyte imbalance -CPK WNL at 167 -Venous dopplers BLE - No DVT within the right or left lower extremity. (5) HTN (hypertension): -Continue atenolol, HCTZ (6) Dyslipidemia: -Continue rosuvastatin (7) Celiac disease: -Gluten diet (8) GERD (gastroesophageal reflux disease): -Continue PPI DVT Prophylaxis -SCDs Full Code Follows with Mary Garcia PA-C for routine care Labs checked ROS-No Headache, No Visual Changes, No Nausea, No Vomiting, No Fever, No Chills, No Neck Pain or Stiffness, No Chest Pain, No Palpitations, No SOB, No ALLRED, No Cough, No Sputum, No Wheezing, No Abdominal Pain, No Diarrhea, No Hematemesis, No Hemoptysis, No Unexpected Weight Loss, No Flank pain, No Melena, No Hematochezia, No Frequency, No Urgency, No Burning, No Hematuria, No Rashes, No Diaphoresis. Appetite is Normal Physical Exam Gen-AAO x 3, NAD, Afebrile Head-NCAT, EOMI, PERRLA, Anicteric Sclera, No Posterior Pharyngeal Erythema Neck-Supple, No JVD, No Thyromegaly, No Masses, No LAD, No Bruits Lungs-Clear to Auscultation Bilaterally, No Rales, No Rhonchi, No Wheezing, No Crepitus Chest-No S4, +S1, +S2, No S3, No Murmurs, No Rubs, No Gallops, No Ectopy Abdomen-Soft, Bowel Sounds Present, Non Tender, Non Distended, No Hepatomegaly, No Splenomegaly, No Palpable Masses, No Rebound, No Rigidity, No Guarding Musculoskeletal-Full Range of Motion Bilaterally, No CVAT Extremities-No Cyanosis, No Clubbing, No Edema Nuero-Cranial Nerves II-XII grossly intact, Motor WNL, DTRs WNL, Strength WNL, Non Focal Psych-Normal Mood Admission and Anticipated Discharge Date Admission Date: October 25, 2019 Results & Data Results & Data ([facility]) Vital Signs (Past 12 Hours) Vital Signs Temp Pulse Pulse Resp BP Pulse Ox 10/26/19 07:36 54 L 10/26/19 07:24 36.6 C 59 L 16 136/76 97 10/26/19 03:55 36.7 C 57 L 18 121/67 97 10/25/19 23:15 56 L 10/25/19 22:14 36.7 C 56 L 16 147/77 H 98
[2019-10-26] MEDS ORDERED: ONDANSETRON INJ 2 MG/ML 2 ML VIAL ONE (11:53)
--- NOTE | 2019-10-26 11:54 | Electrocardiogram Report ---
Test Reason : Blood Pressure : / mmHG Vent. Rate : 062 BPM Atrial Rate : 062 BPM P-R Int : 166 ms QRS Dur : 090 ms QT Int : 446 ms P-R-T Axes : 044 -02 -03 degrees QTc Int : 452 ms Normal sinus rhythm Nonspecific T wave abnormality Abnormal ECG When compared with ECG of 24-JUN-2018 11:24, Nonspecific T wave abnormality now evident in Anterior leads Confirmed by Camden Reza ([id number]) on 10/26/2019 11:54:32 AM Referred By: REFERRED SELF Confirmed By:Camden Reza
--- NOTE | 2019-10-26 12:35 | Electrocardiogram Report ---
Test Reason : Blood Pressure : / mmHG Vent. Rate : 056 BPM Atrial Rate : 056 BPM P-R Int : 172 ms QRS Dur : 088 ms QT Int : 480 ms P-R-T Axes : 050 -13 -07 degrees QTc Int : 463 ms Sinus bradycardia Otherwise normal ECG When compared with ECG of 25-OCT-2019 13:14, (unconfirmed) T wave inversion less evident in Anterior leads Confirmed by Camden Reza ([id number]) on 10/26/2019 12:34:47 PM Referred By: REFERRED SELF Confirmed By:Camden Reza
--- NOTE | 2019-10-26 12:40 | Electrocardiogram Report ---
Test Reason : Blood Pressure : / mmHG Vent. Rate : 061 BPM Atrial Rate : 061 BPM P-R Int : 174 ms QRS Dur : 086 ms QT Int : 460 ms P-R-T Axes : 048 -01 009 degrees QTc Int : 463 ms Normal sinus rhythm Nonspecific ST and T wave abnormality Abnormal ECG When compared with ECG of 25-OCT-2019 22:17, (unconfirmed) No significant change was found Confirmed by Camden Reza ([id number]) on 10/26/2019 12:40:21 PM Referred By: REFERRED SELF Confirmed By:Camden Reza
--- NOTE | 2019-10-26 14:10 | Cardiology Consultation ---
Date of Consultation October 26, 2019 Assessment & Plan (1) Chest pressure: (2) Hx of cardiac cath: (3) Hypokalemia: (4) HTN (hypertension): (5) Nausea & vomiting: (6) SOB (shortness of breath): Atypical presentation for unstable angina. Resting echocardiogram, EKG and troponin levels were all unremarkable. States that this presentation is very different than her previous anginal equivalents. Patient now with significant nausea and vomiting and given the lack of findings to suggest acute ischemia I believe the most prudent course of action would be to hold off on stress testing now and control her nausea. Would recommend performing dobutamine stress echocardiogram in the a.m. once she is feeling better. Obviously, should she develop any further chest discomfort or signs of ischemia then urgent cardiac catheterization may be indicated. Above plan reviewed with the patient and she agrees with plan. No medication changes at this time. History of Present Illness Reason for Consultation: chest pain Requesting Physician: Dr. Vasquez Attending Physician: Joseph Vasquez, History of Present Illness It was my pleasure to see Mrs. Amezquita in consultation today October 26, 2019. She is a very pleasant 64-year-old woman who routinely follows with Dr. Boyd of our cardiology practice. She presented to [facility]2019 with complaints of worsening shortness of breath and chest discomfort. She notes that over the last 2 weeks she has been having some exertional dyspnea. Along with this, she is also been having some intermittent chest discomfort. She describes the chest pain as right-sided and somewhat of a muscle twinge sensation along with a dull achy discomfort. The discomfort can happen at rest or with exertion and does not seem to correlate with her exertional shortness of breath. She states that this chest discomfort is in no way similar to her previous anginal equivalent. Initial evaluation was unremarkable and she was admitted to telemetry. This morning after receiving her morning meds without any food she became very nauseated and developed some vomiting during her resting echocardiogram. She states that she thinks she just needs something to eat to help her feel better. She denies any significant d iscomfort overnight since admission. Of note, the patient was seen by her PCP approximately 1 month ago after she removed a tick from her body and she is been on a course of doxycycline. As per her most recent outpatient cardiology visit: Cardiac history: Coronary disease with cardiac catheterization June 23, 2018 demonstrating 70% proximal in mid LAD lesion, severe diffuse diagonal branch ves bonnie disease, and 99% proximal om 1 stenosis. Interventional Cardiology was consulted and she received a drug-eluting stent to the proximal/mid LAD and PCTA of the small proximal OM 1 with 2.0 balloon. She was discharged on dual anti- platelet therapy including aspirin and Plavix along with higher dose Crestor at 20 mg daily. She developed a right wrist hematoma which improved overnight during hospitalization. Catheterization was performed due to symptoms of crescendo angina and abnormal ECG findings. Allergies Allergy/AdvReac Type Severity Reaction Status Date / Time meperidine [From Demerol] Allergy Difficulty Verified 10/25/19 13:58 Breathing Penicillins Allergy Rash Verified 10/25/19 13:58 Home Medications Home Medications Medication Instructions Recorded Confirmed Type aspirin 81 mg PO DAILY 03/15/18 10/25/19 History atenolol 50 mg PO DAILY 03/15/18 10/25/19 History calcium citrate-vitamin D3 2 tab PO DAILY 03/15/18 10/25/19 History [Citracal + D Maximum] cetirizine [Zyrtec] 10 mg PO DAILY PRN 03/15/18 10/25/19 History hydrochlorothiazide 12.5 mg PO DAILY 03/15/18 10/25/19 History potassium chloride 10 meq PO DAILY 06/24/18 10/25/19 History clopidogrel 75 mg PO QAM #34 tab 06/25/18 10/25/19 Rx rosuvastatin 20 mg PO DAILY #0 tab 06/25/18 10/25/19 Rx doxycycline hyclate 100 mg PO BID 10/25/19 10/25/19 History nitroglycerin [Nitrostat] 0.4 mg SUBLINGUAL DIRECTED PRN 10/25/19 10/25/19 History pantoprazole 40 mg PO DAILY 10/25/19 10/25/19 History Patient History Medical History CAD (coronary artery disease) (Chronic) Celiac disease (Chronic) Dyslipidemia (Chronic) GERD (gastroesophageal reflux disease) HTN (hypertension) HX: benign breast biopsy Meniere disease (Chronic) Microscopic hematuria (Chronic) Migraine (Chronic) Syringobulbia (Chronic) Surgical History History of cataract surgery (Chronic) History of hysterectomy (Chronic) Still has ovaries Hx of cardiac cath 06/2018 at [facility], ANAT to LAD, PTCA small proximal OM1 Family History Father Colorectal cancer Mother Rheumatoid arthritis Diabetes Social History Smoking Status: Never smoker Second Hand Exposure: No; Do You Dip or Chew Tobacco: No; Tobacco Cessation Education Requested by Patient: No Hx Alcohol Use: No Hx Substance Use: No Preferred Language: Norwegian Communication Ability: Effective 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 Mild distress secondary to nausea. HEENT: Normocephalic, atraumatic. Pupils equal, round and reactive to light and accommodation. Extraocular muscles are intact. Anicteric sclera. Moist mucous membranes. Neck: No JVD. No bruit. Cardiovascular: Regular. Positive S-4. Normal S-1 and S-2. No S-3. No murmurs or rubs. Pulmonary: Clear to auscultation B/L. No rales, rhonchi or wheezing Abdomen: Bowel sounds x 4, soft. No rebound, guarding or tenderness. No organomegaly. Extremities: No clubbing, cyanosis or edema. +2 pedal pulses bilaterally. Skin: Warm and dry. Results & Data ([facility]) Vital Signs (Past 12 Hours) Vital Signs Temp Pulse Pulse Resp BP Pulse Ox 10/26/19 08:27 62 10/26/19 07:36 54 L 10/26/19 07:24 36.6 C 59 L 16 136/76 97 10/26/19 03:55 36.7 C 57 L 18 121/67 97
--- NOTE | 2019-10-26 16:05 | Electrocardiogram Report ---
Test Reason : Blood Pressure : / mmHG Vent. Rate : 052 BPM Atrial Rate : 052 BPM P-R Int : 172 ms QRS Dur : 088 ms QT Int : 504 ms P-R-T Axes : 057 -05 001 degrees QTc Int : 468 ms Sinus bradycardia T wave abnormality, consider anterior ischemia Prolonged QT Abnormal ECG When compared with ECG of 26-OCT-2019 06:41, T wave inversion now evident in Anterior leads Confirmed by Camden Reza ([id number]) on 10/26/2019 4:04:28 PM Referred By: REFERRED SELF Confirmed By:Camden Reza
--- NOTE | 2019-10-27 06:53 | Hospitalist Progress Note ---
Date of Service October 27, 2019 Assessment & Plan (1) Chest pressure: Troponins are neg x 2 (2) SOB (shortness of breath): Pt is 64 y/o F with PMH CAD s/p ANAT to LAD & PTCA small proximal OM1 in 06/2018, HTN, dyslipidemia, celiac disease, GERD presented to ER with c/o intermittent SOB and chest pressure. Pt states past couple of weeks having intermittent episodes of SOB that can occur with exertion such as yard work/painting and sometimes at rest. Last night had episode of sweating and SOB described as needing to take big breath while she was doing housework. Walks often without reported symptoms. H/O atypical CP and had exercise stress echo in 01/2019 with no inducible ischemia at 78% max age predicted heart rate. EF: 60-64%, grade II diastolic dysfunction, mild mitral regurgitation, mild aortic regurgitation, mild tricuspid regurgitation In ER afebrile, P:54-68, BP: 128/75, 98% on RA. No leukocytosis, initial troponin negative, D-dimer WNL, EKG sinus rhythm, t wave flattening anterior, lateral leads R/O coronary disease. Risk factors: CAD, HTN, hyperlipidemia -No current CP or SOB -Nitro prn CP -stress test today -Cardiology on case -DC later today if cards w/u complete, had N/v yesterday so stress not done (3) Hypokalemia: -replace and monitor -continue daily potassium supplement (4) Leg crampin/20 c/o cramping type pain to bilateral calfs and today right calf still feels a little achy. Denies any edema, erythema of extremities. May be secondary to electrolyte imbalance -CPK WNL at 167 -Venous dopplers BLE - No DVT within the right or left lower extremity. (5) HTN (hypertension): -Continue atenolol, HCTZ (6) Dyslipidemia: -Continue rosuvastatin (7) Celiac disease: -Gluten diet (8) GERD (gastroesophageal reflux disease): -Continue PPI DVT Prophylaxis -SCDs Full Code Follows with Mary Garcia PA-C for routine care, appt made Labs checked ROS-No Headache, No Visual Changes, No Nausea, No Vomiting, No Fever, No Chills, No Neck Pain or Stiffness, No Chest Pain, No Palpitations, No SOB, No ALLRED, No Cough, No Sputum, No Wheezing, No Abdominal Pain, No Diarrhea, No Hematemesis, No Hemoptysis, No Unexpected Weight Loss, No Flank pain, No Melena, No Hematochezia, No Frequency, No Urgency, No Burning, No Hematuria, No Rashes, No Diaphoresis. Appetite is Normal Physical Exam Gen-AAO x 3, NAD, Afebrile Head-NCAT, EOMI, PERRLA, Anicteric Sclera, No Posterior Pharyngeal Erythema Neck-Supple, No JVD, No Thyromegaly, No Masses, No LAD, No Bruits Lungs-Clear to Auscultation Bilaterally, No Rales, No Rhonchi, No Wheezing, No Crepitus Chest-No S4, +S1, +S2, No S3, No Murmurs, No Rubs, No Gallops, No Ectopy Abdomen-Soft, Bowel Sounds Present, Non Tender, Non Distended, No Hepatomegaly, No Splenomegaly, No Palpable Masses, No Rebound, No Rigidity, No Guarding Musculoskeletal-Full Range of Motion Bilaterally, No CVAT Extremities-No Cyanosis, No Clubbing, No Edema Nuero-Cranial Nerves II-XII grossly intact, Motor WNL, DTRs WNL, Strength WNL, Non Focal Psych-Normal Mood Admission and Anticipated Discharge Date Admission Date: October 25, 2019 Results & Data Results & Data ([facility]) Vital Signs (Past 12 Hours) Vital Signs Temp Pulse Pulse Resp BP BP Pulse Ox 10/27/19 04:31 36.4 C L 56 L 18 120/68 93 10/27/19 00:00 58 L 10/26/19 23:00 36.6 C 55 L 18 129/71 98 10/26/19 19:58 36.5 C 55 L 20 135/76 98
[2019-10-27] MEDS: hydroCHLOROthiazide 25 MG TAB PO SCH (08:31)
[2019-10-27] MEDS: ROSUVASTATIN CALCIUM 20 MG TAB PO SCH (08:32)
[2019-10-27] MEDS: POTASSIUM CHLORIDE 10 MEQ TABCR PO SCH (08:32)
[2019-10-27] MEDS: CLOPIDOGREL BISULFATE 75 MG TAB PO SCH (08:32)
[2019-10-27] MEDS: PANTOprazole 40 MG TAB PO SCH (08:32)
[2019-10-27] MEDS: ASPIRIN 81 MG ECTAB PO SCH (08:32)
[2019-10-27] MEDS: DOXYCYCLINE HYCLATE 100 MG CAP PO SCH (08:32)
[2019-10-27] MEDS: ATENOLOL 50 MG TABLET PO SCH (08:32)
[2019-10-27] MEDS: ACETAMINOPHEN 325 MG TAB PO PRN ×2 (08:38→15:26)
[2019-10-27] MEDS: ONDANSETRON INJ 2 MG/ML 2 ML VIAL IV PRN ×2 (10:40→15:26)
[2019-10-27 11:51] LABS: BUN Creatinine Ratio 14.9 (10-20); Calcium 9.2 mg/dl (8.5-10.1); Creatinine Clr Calc Pharmacy 52.1 ml/min; Est GFR (African American) 74.7; Est GFR (Non-African American) 64.5; Potassium 3.5 mmol/L (3.5-5.1)
[2019-10-27 12:14] LABS: Lyme Ab IgM w/WB Rflx Negative (Negative)
[2019-10-27 12:15] LABS: Lyme Ab IgG w/WB Rflx Negative (Negative)
--- NOTE | 2019-10-27 13:42 | Cardiology Progress Note ---
Date of Service October 27, 2019 Assessment & Plan (1) Chest pressure: (2) Hx of cardiac cath: (3) Hypokalemia: (4) HTN (hypertension): (5) Nausea & vomiting: (6) SOB (shortness of breath): Atypical presentation for unstable angina. Resting echocardiogram, EKG and troponin levels were all unremarkable. States that this presentation is very different than her previous anginal equivalents. Patient now with significant nausea and vomiting and given the lack of findings to suggest acute ischemia I believe the most prudent course of action would be to hold off on stress testing now and control her nausea. She states that she is not interested in undergoing stress testing at this time. She is concerned about the recent tick bite and the lack of improvement with doxycycline. We will send a tick panel to look for babesiosis, ehrlichiosis and anaplasmosis now. From a cardiac standpoint no sign of active ischemia so at this point I believe the most prudent course of action would be to have her follow-up with us as she is already scheduled in the next week or so. The decision whether or not to perform stress testing can be made at that time. Recommend ongoing medical evaluation and treatment for her complaints of nausea, joint aches and vomiting Subjective Patient seen and examined, chart reviewed. States that she still not feeling well today. Still somewhat nauseous and did vomit this morning. She is blaming this on being out of her normal room morning routine. Denies any recurrences of chest discomfort. She is concerned about a bump that she had on her left forearm. She also states that she has been treated for Lyme disease after tick bite but has not significantly improved with an extended course of doxycycline. Telemetry reviewed: Normal sinus rhythm without arrhythmia or significant ectopy. Review of Systems Review of Systems: All systems reviewed & are unremarkable except as noted in HPI & below Physical Exam Physical Exam: General: Awake, alert and oriented x 3. No acute distress. HEENT: Normocephalic, atraumatic. Pupils equal, round and reactive to light and accommodation. Extraocular muscles are intact. Anicteric sclera. Moist mucous membranes. Neck: No JVD. No bruit. Cardiovascular: Regular. Positive S-4. Normal S-1 and S-2. No S-3. No murmurs or rubs. Pulmonary: Clear to auscultation B/L. No rales, rhonchi or wheezing Abdomen: Bowel sounds x 4, soft. No rebound, guarding or tenderness. No organomegaly. Extremities: No clubbing, cyanosis or edema. +2 pedal pulses bilaterally. Skin: Warm and dry. Results & Data Vital Signs (Past 12 Hours) Vital Signs Temp Pulse Pulse Resp BP Pulse Ox 10/27/19 11:40 36.7 C 57 L 18 137/75 98 10/27/19 07:40 62 10/27/19 07:10 36.6 C 52 L 16 136/79 96 10/27/19 04:31 36.4 C L 56 L 18 120/68 93
--- NOTE | 2019-10-27 14:14 | Discharge Summary ---
Date of Service October 27, 2019 Admission HPI Per Admitting Provider Pt is 64 y/o F with PMH CAD s/p ANAT to LAD & PTCA small proximal OM1 in 06/2018, HTN, dyslipidemia, celiac disease, GERD presented to ER with c/o intermittent SOB and chest pressure. Pt states past couple of weeks having intermittent episodes of SOB that can occur with exertion such as yard work/painting and sometimes at rest. Last night had episode of sweating and SOB described as needing to take big breath while she was doing housework. Walks often without reported symptoms. Last night c/o cramping type pain to bilateral calfs and today right calf still feels a little achy. Denies any edema, erythema of extremities. Pt states last night noticed a lump to left forearm and had some tingling sensation to left index finger. This morning woke up with improvement of symptoms and no further lump, area looks a little bruised. Denies any known injury or trauma. Does reports bruises easily. 09/27/2019 was seen at PCP office for fever, myalgias and reported tick bite that had occurred a little over one week prior to her left chest/abdominal wall. Pt states tick was not engorged. She was started on doxycycline for 30 day course and states has couple days remaining. Denies any rashes or bulls-eye type rash. No further fever/chills for past 3 weeks. Denies N/V/D/C, KRUSE, dizziness, syncope, vision changes, neck pain, orthopnea, palpitations, cough, sore throat, choking, otalgia, rhinorrhea, abdominal pain, weakness, rashes, urinary symptoms. Denies ill contacts, recent travel. Admission Exam Per Admitting Provider General: no distress, WDWN Head: normocephalic, atraumatic Eyes: conjunctiva non-injected, anicteric ENT: normal inspection external ears, nose, mucous membranes moist Neck: supple, trachea midline Lungs: clear, no respiratory distress, no wheezing/rhonchi/rales CV: RRR, no murmur, no pretibial edema Abd: normal BS, soft, non-tender Ext: no cyanosis or erythema, slight calf tenderness to palpation right calf; bilateral forearms with ecchymosis Neuro: A&O x 3, no focal deficits noted, normal affect Skin: warm, dry Principal Diagnosis (1) Chest pressure: (2) SOB (shortness of breath): (3) Hypokalemia: (4) Leg cramping: (5) HTN (hypertension): (6) Dyslipidemia: (7) Celiac disease: (8) GERD Discharge Exam see below Discharge Data Allergies Allergy/AdvReac Type Severity Reaction Status Date / Time meperidine [From Demerol] Allergy Difficulty Verified 10/25/19 13:58 Breathing Penicillins Allergy Rash Verified 10/25/19 13:58 Consultations 10/25/19 17:38 Consult Cardiology Routine Ordered Studies 10/25/19 15:53 US venous doppler LE BI Urgent Current Diagnoses Hyperlipidemia, unspecified (10/25/19) Hypokalemia (10/25/19) Essential (primary) hypertension (10/25/19) Gastro-esophageal reflux disease without esophagitis (10/25/19) Celiac disease (10/25/19) Shortness of breath (10/25/19) Other chest pain (10/25/19) Nausea with vomiting, unspecified (10/25/19) Cramp and spasm (10/25/19) Other specified postprocedural states (10/25/19) Allergies meperidine [From Demerol] Allergy (Verified 10/25/19 13:58) Difficulty Breathing Penicillins Allergy (Verified 10/25/19 13:58) Rash Height/Weight/Isolation Height 5 ft 4 in Weight 63.4 kg Chemistry 10/26/19 10/27/19 05:28 11:18 Sodium 140 136 Potassium 3.8 D 3.5 Chloride 107 102 Carbon Dioxide 28 28 Anion Gap 5.0 6.0 BUN 17 14 Creatinine 0.91 0.93 Glucose 94 121 H Hospital Course (1) Chest pressure: Troponins are neg x 2 (2) SOB (shortness of breath): Pt is 64 y/o F with PMH CAD s/p ANAT to LAD & PTCA small proximal OM1 in 06/2018, HTN, dyslipidemia, celiac disease, GERD presented to ER with c/o intermittent SOB and chest pressure. Pt states past couple of weeks having intermittent episodes of SOB that can occur with exertion such as yard work/painting and sometimes at rest. Last night had episode of sweating and SOB described as needing to take big breath while she was doing housework. Walks often without reported symptoms. H/O atypical CP and had exercise stress echo in 01/2019 with no inducible ischemia at 78% max age predicted heart rate. EF: 60-64%, grade II diastolic dysfunction, mild mitral regurgitation, mild aortic regurgitation, mild tricuspid regurgitation In ER afebrile, P:54-68, BP: 128/75, 98% on RA. No leukocytosis, initial troponin negative, D-dimer WNL, EKG sinus rhythm, t wave flattening anterior, lateral leads R/O coronary disease. Risk factors: CAD, HTN, hyperlipidemia -No current CP or SOB -Nitro prn CP -stress test today -Cardiology on case -DC today f/u outpatient c Cards and PCP Tick borne illness panel ordered (3) Hypokalemia: -replaced (4) Leg crampin/20 c/o cramping type pain to bilateral calfs and today right calf still feels a little achy. Denies any edema, erythema of extremities. May be secondary to electrolyte imbalance -CPK WNL at 167 -Venous dopplers BLE - No DVT within the right or left lower extremity. (5) HTN (hypertension): -Continue atenolol, HCTZ (6) Dyslipidemia: -Continue rosuvastatin (7) Celiac disease: -Gluten diet (8) GERD (gastroesophageal reflux disease): -Continue PPI DVT Prophylaxis -SCDs Full Code Follows with Mary Garcia PA-C for routine care, appt made Kept having episodes of vomiting before stress tests, now doesn't want one Labs checked ROS-No Headache, No Visual Changes, + Nausea, + Vomiting, No Fever, No Chills, No Neck Pain or Stiffness, No Chest Pain, No Palpitations, No SOB, No ALLRED, No Cough, No Sputum, No Wheezing, No Abdominal Pain, No Diarrhea, No Hematemesis, No Hemoptysis, No Unexpected Weight Loss, No Flank pain, No Melena, No Hematochezia, No Frequency, No Urgency, No Burning, No Hematuria, No Rashes, No Diaphoresis. Appetite is Normal Physical Exam Gen-AAO x 3, NAD, Afebrile Head-NCAT, EOMI, PERRLA, Anicteric Sclera, No Posterior Pharyngeal Erythema Neck-Supple, No JVD, No Thyromegaly, No Masses, No LAD, No Bruits Lungs-Clear to Auscultation Bilaterally, No Rales, No Rhonchi, No Wheezing, No Crepitus Chest-No S4, +S1, +S2, No S3, No Murmurs, No Rubs, No Gallops, No Ectopy Abdomen-Soft, Bowel Sounds Present, Non Tender, Non Distended, No Hepatomegaly, No Splenomegaly, No Palpable Masses, No Rebound, No Rigidity, No Guarding Musculoskeletal-Full Range of Motion Bilaterally, No CVAT Extremities-No Cyanosis, No Clubbing, No Edema Nuero-Cranial Nerves II-XII grossly intact, Motor WNL, DTRs WNL, Strength WNL, Non Focal Psych-Normal Mood Total Time Total Time Spent Total Time Spent (In Minutes): 45 min Total Time Includes: Examination of the Patient, Discharge Planning, Medication Reconciliation and Communication With Other Providers Discharge Plan Discharge Items Patient Disposition: Home - Self-Care Reason For Visit: CHEST PAIN,EXERTIONAL SOB Discharge Diagnosis: (1) Chest pressure: (2) SOB (shortness of breath): (3) Hypokalemia: (4) Leg cramping: (5) HTN (hypertension): (6) Dyslipidemia: (7) Celiac disease: (8) GERD Condition on Discharge: Good Health Concerns: On Doxy for Lyme Activity: Resume your previous activity Lifting: Gradually increase as tolerated Bathing: No limitations Sexual Activity: When tolerated Exercise/Sports: Gradually increase as tolerated Driving/Machine Use: No limitations Weightbearing: Full weightbearing Non-emergency contact: Primary Care Provider Call non-emergency contact if: you have any medication questions Follow-up/Referrals: Briseyda Vargas MD [Physician] - 11/01/19 11:20 am Mary Garcia PA-C [Primary Care Provider] - Diet: Regular Addtl Attending Provider Instructions: You are allergic to penicillin, I'm changing you Lyme medicine to cefuroxime, some times paople can be allergic to cephalosporins if they are allergic to penicillin Pending Studies at Discharge: No Stand-Alone Forms: [facility], Smoking Cessation Medications and DC Order Prescriptions: New prochlorperazine maleate [Compazine] 10 mg tablet 10 mg PO Q8H PRN (Reason: nausea and vomiting) Qty: 30 RF: 0 cefuroxime axetil 500 mg tablet 500 mg PO BID 20 Days Qty: 40 RF: 0 Continued aspirin 81 mg Tablet,Delayed Release (Dr/Ec) 81 mg PO DAILY RF: 0 cetirizine [Zyrtec] 10 mg Tablet 10 mg PO DAILY PRN (Reason: Allergy Symptoms) RF: 0 hydrochlorothiazide 12.5 mg capsule 12.5 mg PO DAILY RF: 0 atenolol 50 mg tablet 50 mg PO DAILY RF: 0 calcium citrate-vitamin D3 [Citracal + D Maximum] 315-250 mg-unit Tablet 2 tab PO DAILY RF: 0 potassium chloride 10 mEq Capsule, Extended Release 10 meq PO DAILY RF: 0 clopidogrel 75 mg Tablet 75 mg PO QAM Qty: 34 RF: 0 rosuvastatin 10 mg tablet 20 mg PO DAILY Qty: 0 RF: 0 pantoprazole 40 mg Tablet,Delayed Release (Dr/Ec) 40 mg PO DAILY RF: 0 nitroglycerin [Nitrostat] 0.4 mg Tablet, Sublingual 0.4 mg sublingual DIRECTED PRN (Reason: Chest Pain) RF: 0 Discontinued doxycycline hyclate 100 mg capsule 100 mg PO BID RF: 0 Discharge Orders: Discharge Order (Routine); Ordered 10/27/19 Ordered By: Joseph Vasquez Admission Data Admit Date/Time: 10/25/19 15:23 Attending Provider: Joseph Vasquez Admit Provider: Mark Kelsey Primary Care Provider: Mary Garcia Other Providers: Brannon Weaver
== END 2019-10-27 15:54 | disposition home or self-care (01) ==
LOC: 2N 12:56 → ED 12:56 → SUATTDRO 15:23 → 2N 16:20